=== PATIENT | male | born 1955 | race Caucasian/White ===

== ENCOUNTER 2024-10-24 09:09 | Emergency (ER) | payer OTHER ==
--- NOTE | 2024-10-24 10:01 | RAD REPORT ---
EXAMINATION: Pelvis CLINICAL INDICATION: Male, 69 years old. fall COMPARISON: No prior exam. FINDINGS: No acute fracture. 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 No significant focal degenerative change. Other: n/a IMPRESSION: No acute osseous abnormality.
--- NOTE | 2024-10-24 10:08 | RAD REPORT ---
EXAM: Knee Left 3 View INDICATION: fall COMPARISON: None FINDINGS: No acute fracture. Intact left knee arthroplasty. No significant knee effusion. No significant focal degenerative changes. Other: N/A IMPRESSION: No acute osseous abnormality involving the imaged knee.
--- NOTE | 2024-10-24 10:09 | RAD REPORT ---
EXAMINATION: Ankle Left 3 View CLINICAL INDICATION: Male, 69 years old. fall COMPARISON: No prior exam. FINDINGS: No acute fracture. No malalignment/dislocation. Talonavicular spurring. Other: n/a IMPRESSION: No acute osseous abnormality.
[2024-10-24] MEDS ORDERED: KETOROLAC 30 MG/ML INJ ONE (10:30)
[2024-10-24] MEDS ORDERED: ACETAMINOPHEN 500 MG TAB ONE (10:30)
[2024-10-24] MEDS ORDERED: DIAZEPAM 5 MG TABLET ONE (10:31)
[2024-10-24] MEDS ORDERED: LIDOCAINE 4% PATCH ONE (10:31)
--- NOTE | 2024-10-24 10:56 | ER ---
Nurse's Notes [facility] Name: Jonathon Garcia Age: 69 yrs Sex: Male : 1955 Arrival Date: 10/24/2024 Time: 09:09 Bed 12 Private MD: Diagnosis: Pain in left hip Presentation: 10/24 09:18 Chief complaint: Fell while walking to mailbox yesterday, c/o pain in left hip and hb ankle. Negative LOC, no blood thinners. Coronavirus screen: At this time, the client does not indicate any symptoms associated with coronavirus-19. Ebola Screen: No symptoms or risks identified at this time. Initial Sepsis Screen: Does the patient meet any 2 criteria? No. Patient's initial sepsis screen is negative. Does the patient have a suspected source of infection? No. Patient's initial sepsis screen is negative. Risk Assessment: Do you want to hurt yourself or someone else? Patient reports no desire to harm self or others. Onset of symptoms was October 23, 2024. 09:18 Method Of Arrival: Wheelchair hb 09:18 Acuity: VLADIMIR 4 hb Triage Assessment: 09:23 General: Appears in no apparent distress. uncomfortable, Behavior is calm, cooperative. hb Pain: Pain currently is 10 out of 10 on a pain scale. Neuro: Level of Consciousness is awake, alert, obeys commands, Oriented to person, place, time, situation. Cardiovascular: Patient's skin is warm and dry. Respiratory: Respiratory effort is even, unlabored, Respiratory pattern is regular. Historical: - Allergies: 09:19 Iodinated Contrast Media; hb - PMHx: :19 Arthritis; DM2; Hypertension; hb - PSHx: 09:19 TURP; hb 09:20 Knee Replacement - Bilateral; hb - Immunization history:: Adult Immunizations up to date. - Infectious Disease History:: Denies. - Social history:: Smoking status: Patient denies any tobacco usage or history of. Screenin:[facility] ED Fall Risk Assessment (Adult) History of falling in the last 3 months, hb including since admission Yes- single mechanical fall (1 pt) Confusion or Disorientation No (0 pts) Intoxicated or Sedated No (0 pts) Impaired Gait Yes (1 pt) Mobility Assist Device Used Yes (1 pt) Altered Elimination No (0 pt) Score/Fall Risk Level 3 or more points = High Risk Oriented to surroundings, Maintained a safe environment, Educated pt \T\ family on fall prevention, incl call for assistance when getting out of bed. Abuse screen: Denies threats or abuse. Denies injuries from another. Nutritional screening: No deficits noted. Tuberculosis screening: No symptoms or risk factors identified. Assessment: 11:00 Reassessment: Patient appears in no apparent distress at this time. No changes from previously documented assessment. Patient and/or family updated on plan of care and expected duration. Pain level reassessed. Patient is alert, oriented x 3, equal unlabored respirations, skin warm/dry/pink. Vital Signs: 09:20 BP 178 / 106; Pulse 81; Resp 18; Temp 98.6(O); Pulse Ox 100% ; Weight 154.22 kg; Height hb 6 ft. 1 in. ; Pain 10/10; 09:20 Body Mass Index 44.86 (154.22 kg, 185.42 cm) hb 09:20 Pain Scale: Adult hb ED Course: 09:12 Patient arrived in ED. im 09:12 Noel Kumar MD is Attending Physician. ec2 09:19 Triage completed. hb 09:20 Arm band placed on. hb 09:38 Patient moved to radiology via wheelchair. md2 09:51 Patient taken to lobby, via wheelchair. md2 09:52 Pelvis XRAY In Process Unspecified. EDMS 09:52 Knee Left 3 View XRAY In Process Unspecified. EDMS 09:52 Ankle Left 3 View XRAY In Process Unspecified. EDMS 11:00 Patient has correct armband on for positive identification. Provided Education on: hb medications, follow up. 11:00 No provider procedures requiring assistance completed. Patient did not have IV access hb during this emergency room visit. 11:19 Ivory Mendez, RN is Primary Nurse. hb Administered Medications: 10:41 Drug: Diazepam PO 10 mg PO once Route: PO; hb 11:21 Follow up: Response: No adverse reaction hb 10:41 Drug: Lidoderm Topical Patch 5 % (700 mg/patch) 1 patches Topical once; leave on for 12 hb hours; cover most painful area; may cut into smaller pieces Route: Topical; Site: affected area; 11:21 Follow up: Response: No adverse reaction hb 10:41 Drug: Acetaminophen PO 1000 mg PO once Route: PO; hb 11:21 Follow up: Response: No adverse reaction hb 10:41 Drug: Ketorolac IM 30 mg IM once Route: IM; Site: right deltoid; hb 11:21 Follow up: Response: No adverse reaction hb Medication: 11:00 VIS not applicable for this client. hb Outcome: 10:55 Discharge ordered by . ec2 11:20 Discharged to home via wheelchair, with family, hb 11:20 Condition: stable 11:20 Discharge instructions given to patient, family, Instructed on discharge instructions, follow up and referral plans. medication usage, Demonstrated understanding of instructions, follow-up care, medications, Prescriptions given X 1, 11:22 Patient left the ED. hb Signatures: Dispatcher [employer] Ivory Calloway RN RN AlexEsther md2 Daisy Ojeda Edwin, MD MD ec2 Corrections: (The following items were deleted from the chart) 09:20 09:18 Chief complaint: Fell while walking to mailbox yesterday, c/o pain in left hip hb and ankle hb 09:20 09:19 Allergies: No Known Allergies; hb hb 09:23 09:20 154.22 kg; Height 6 ft. 1 in.; BMI: 44.8; Pain 03/15, Adult; hb hb
--- NOTE | 2024-10-24 10:56 | EDPHYS ---
Physician Documentation [facility] Name: Jonathon Garcia Age: 69 yrs Sex: Male : 1955 Arrival Date: 10/24/2024 Time: 09:09 Bed 12 Private MD: ED Physician Noel Kumar HPI: 10/24 09:25 This 69 yrs old Male presents to ER via Wheelchair with complaints of Fall ec2 Injury. 09:25 Patient arrives today for evaluation of left hip pain and to left lower extremity pain. ec2 Patient reports that he had a ground-level fall yesterday, no LOC. Patient complaining of pain in the left lower extremity. No back pain, no head or neck pain. Denies blood thinners.. Historical: - Allergies: 09:19 Iodinated Contrast Media; hb - PMHx: 09:19 Arthritis; DM2; Hypertension; hb - PSHx: 09:19 TURP; hb 09:20 Knee Replacement - Bilateral; hb - Immunization history:: Adult Immunizations up to date. - Infectious Disease History:: Denies. - Social history:: Smoking status: Patient denies any tobacco usage or history of. ROS: 09:25 Constitutional: as per hpi ec2 Exam: 09:25 Constitutional: GEN: NAD Head: atraumatic Eyes: EOMI Ears: External ears are ec2 normal. CV: regular rate LUNGS: no respiratory distress ABD: non-distended SKIN: no evidence of rashes MSK: No C/T/L-spine TTP or deformities, left hip with TTP, intact range of motion, left knee and left ankle TTP with intact range of motion. Vital Signs: 09:20 BP 178 / 106; Pulse 81; Resp 18; Temp 98.6(O); Pulse Ox 100% ; Weight 154.22 kg; Height hb 6 ft. 1 in. ; Pain 10/10; 09:20 Body Mass Index 44.86 (154.22 kg, 185.42 cm) hb 09:20 Pain Scale: Adult hb MDM: 09:13 Medical Screening Exam initiated ec2 09:26 Data reviewed: vital signs, nurses notes. ED course: Patient arrives today for ec2 evaluation of left lower extremity pain after GLF. Examination yields MSK findings as above. Will obtain radiographs. Suspect contusion, doubt fracture or dislocation. Will treat the patient's pain as well.. 10:55 ED course: radiographs negative for acute traumatic pathology. will d/c to home and ec2 have her f/u w/ pcp. return precautions given. 10/24 09:22 Order name: Pelvis XRAY; Complete Time: 10:55 ec2 10/24 09:22 Order name: Knee Left 3 View XRAY; Complete Time: 10:55 ec2 10/24 09:22 Order name: Ankle Left 3 View XRAY; Complete Time: 10:55 ec2 Administered Medications: 10:41 Drug: Diazepam PO 10 mg PO once Route: PO; hb 11:21 Follow up: Response: No adverse reaction hb 10:41 Drug: Lidoderm Topical Patch 5 % (700 mg/patch) 1 patches Topical once; leave on for 12 hb hours; cover most painful area; may cut into smaller pieces Route: Topical; Site: affected area; 11:21 Follow up: Response: No adverse reaction hb 10:41 Drug: Acetaminophen PO 1000 mg PO once Route: PO; hb 11:21 Follow up: Response: No adverse reaction hb 10:41 Drug: Ketorolac IM 30 mg IM once Route: IM; Site: right deltoid; hb 11:21 Follow up: Response: No adverse reaction hb Disposition Summary: 10/24/24 10:55 Discharge Ordered Notes: Location: Home ec2 Condition: Stable ec2 Diagnosis - Pain in left hip ec2 Followup: ec2 - With: Private Physician - When: - Reason: Re-evaluation by your physician Discharge Instructions: - Discharge Summary Sheet ec2 - Hip Pain ec2 Forms: - Medication Reconciliation Form ec2 - Antibiotic Education ec2 - Prescription Opioid Use ec2 - Patient Portal Instructions ec2 - Leadership Thank You Letter ec2 Prescriptions: - methocarbamol 500 mg Oral tablet - take 1 tablet ORAL route 4 times per day; 20 tablet; Refills: 0, Product ec2 Selection Permitted Signatures: Dispatcher [employer] Ivory Calloway RN RN hb Corral, Edwin, MD MD ec2 Corrections: (The following items were deleted from the chart) 09:20 09:19 Allergies: No Known Allergies; hb hb
[2024-10-24 11:26] VITALS: BP 178/106; TEMP 98.6; O2SAT 100
== END 2024-10-24 11:22 | disposition home or self-care (01) ==
LOC: ER 09:09
DX: M25.552 Pain in left hip (principal); M79.662 Pain in left lower leg; W18.30XA Fall on same level, unspecified, initial encounter; Z96.653 Presence of artificial knee joint, bilateral
CPT/HCPCS: 72170; 73562; 73610; 96372; 99284; J2003